=== PATIENT | female | born 1955 | race African-American/Black ===

== ENCOUNTER 2017-05-21 10:24 | Emergency (ER) | payer MEDICAID, OTHER ==
[~2017-05-21] VITALS: Ht 175.3 cm; Wt 89.8 kg
[2017-05-21 11:03] VITALS: BP 144/89
[2017-05-21 11:04] VITALS: BP 144/89
--- NOTE | 2017-05-21 12:42 | Emergency Room Report ---
History of Present Illness General Chief Complaint: Flu Like Symptoms Source: Patient Present Illness HPI 61-year-old female presents ED for evaluation. Complaining of runny nose, cough , congestion times one week. States she lost her voice. Denies any throat pain. Denies any fevers chills. Denies sick contacts or recent travel. States she received her Pneumovax and influenza shot this year. No other aggravating relieving factors. Denies any other associated symptoms Allergies: Coded Allergies: SULFA (SULFONAMIDE ANTIBIOTICS) (Unverified Allergy, Unknown, 10/25/13) Patient History Past Medical History: HTN Past Surgical History: none Pertinent Family History: none Social History: Denies: smoking, alcohol use, drug use Now: No Immunizations: UTD Reviewed Nursing Documentation: PMH: Agreed; PSxH: Agreed Nursing Documentation-PMH Hx Hypertension: Yes Review of Systems All Other Systems: negative except mentioned in HPI Physical Exam Vital Signs Date Time Temp Pulse Resp B/P (MAP) Pulse Ox O2 Delivery O2 Flow Rate FiO2 05/21/17 10:34 98.0 75 20 145/98 98 Room Air 98.1 Sp02 EP Interpretation: reviewed, normal General Appearance: no apparent distress, alert, GCS 15, non-toxic Head: normocephalic, atraumatic Eyes: bilateral eye normal inspection, bilateral eye PERRL ENT: hearing grossly normal, normal pharynx, no angioedema, normal voice Neck: full range of motion, supple/symm/no masses Respiratory: chest non-tender, lungs clear, normal breath sounds, speaking full sentences Cardiovascular #1: regular rate, rhythm, no edema Cardiovascular #2: 2+ carotid (R), 2+ carotid (L), 2+ radial (R), 2+ radial (L) , 2+ dorsalis pedis (R), 2+ dorsalis pedis (L) Gastrointestinal: normal bowel sounds, non tender, soft, non-distended, no guarding, no rebound Rectal: deferred Genitourinary: normal inspection, no CVA tenderness Musculoskeletal: back normal, gait/station normal, normal range of motion, non- tender Neurologic: alert, oriented x3, responsive, motor strength/tone normal, sensory intact, speech normal Psychiatric: judgement/insight normal, memory normal, mood/affect normal, no suicidal/homicidal ideation Reflexes: 3+ bicep (R), 3+ bicep (L), 3+ tricep (R), 3+ tricep (L), 3+ knee (R) , 3+ knee (L) Skin: normal color, no rash, warm/dry, well hydrated Lymphatic: no adenopathy Medical Decision Making Diagnostic Impression: Primary Impression: Upper respiratory infection Qualified Codes: J06.9 - Acute upper respiratory infection, unspecified ER Course Hospital Course 61-year-old female presents ED with runny nose, cough, congestion, lost voice Differential diagnoses include: URI, pharyngitis, otitis media, asthma Clinical course Patient placed on stretcher. After initial history, physical exam reveals an elderly female in no acute distress. Bilateral TM unremarkable. No pharyngeal erythema. No tonsillar exudates. No lymphadenopathy. lungs clear. abdomen soft. Clinical findings consistent with URI. Reassurance given. treatment is supportive therapy Diagnosis - URI Stable and discharged home. Instructed to followup with PMD. Return to ED if symptoms recur or worsen Last Vital Signs Date Time Temp Pulse Resp B/P (MAP) Pulse Ox O2 Delivery O2 Flow Rate FiO2 05/21/17 11:04 98.1 89 19 144/89 98 Room Air 98.1 Status: improved Disposition: HOME, SELF-CARE Condition: Stable Referrals: [facility]ERR[facility] (PCP) Patient Instructions: Upper Respiratory Infection, Adult, [id number] Jordin Gregg MD May 21, 2017 12:42
== END 2017-05-21 11:43 | disposition home or self-care (01) ==
LOC: EMR 11:00
DX: J06.9 Acute upper respiratory infection, unspecified (principal); I10 Essential (primary) hypertension; Z88.2 Allergy status to sulfonamides
CPT/HCPCS: 99282

== ENCOUNTER 2018-10-26 14:29 | Emergency (ER) | payer OTHER ==
[~2018-10-26] VITALS: Ht 175.3 cm; Wt 90.7 kg
--- NOTE | 2018-10-26 14:43 | NUR ---
ED Nurse Note: Also complains of pain and swelling x 6 days after [place]
--- NOTE | 2018-10-26 14:43 | NUR ---
ED Nurse Note: Pt came in from home due to dizziness x 1 week. Also c/o nausea/vomiting/diarrhea x today. Vomited x 3 today. Emesis was bile and undigested food. Last bowel movement was today. No complaint of pain. AOx4, VSS at this time.
--- NOTE | 2018-10-26 14:51 | Emergency Room Report ---
History of Present Illness General Chief Complaint: Dizziness Source: Patient Present Illness HPI Disclaimer: Please note that this report is being documented using DRAGON technology. This can lead to erroneous entry secondary to incorrect interpretation by the dictating instrument. HPI: 63-year-old female with a history of hypertension, restless leg syndrome presents for evaluation of nausea, vomiting, diarrhea, lightheadedness and left leg swelling. Patient states she has had approximately 1 week of profusely watery diarrhea occurring approximately 3 times daily. She denies any abdominal pain or inability to eat or drink during this period. Today, she had 3 episodes of vomiting and feels nauseated and lightheaded. She continues to deny abdominal pain. Denies fevers, chills, chest pain, shortness of breath. She was spreading ashes on a boat this afternoon and noticed some swelling of the left knee and calf. She normally has swelling of both legs while standing for prolonged periods of time but she found this abnormal as it was unilateral and only on the left side. She denies any history of blood clots, recent long distance travel, exogenous hormone use, recent surgery or immobilization or history of cancer. No other complaints at this time. There is no syncope and denies vertiginous symptoms describing it more as a lightheadedness. PMH: Hypertension, restless leg syndrome PSH: Denies Allergies: Sulfa medications Social Hx: Denies drug or alcohol abuse Allergies: Coded Allergies: SULFA (SULFONAMIDE ANTIBIOTICS) (Unverified Allergy, Unknown, 10/25/13) Nursing Documentation-PMH Past Medical History: No History, Except For Hx Cardiac Problems: No Hx Hypertension: Yes Hx Pacemaker: No Hx Asthma: No Hx COPD: No Hx Diabetes: No Hx Cancer: No Hx Gastrointestinal Problems: Yes Hx Dialysis: No History Of Psychiatric Problem: No Hx Neurological Problems: No Hx Cerebrovascular Accident: No Hx Seizures: No Review of Systems All Other Systems: negative except mentioned in HPI Physical Exam Vital Signs Date Time Temp Pulse Resp B/P (MAP) Pulse Ox O2 Delivery O2 Flow Rate FiO2 10/26/18 14:32 98.4 96 16 150/83 (105) 100 Room Air General: Awake and alert, no acute distress HEENT: NC/AT. EOMI. Neck: Supple, trachea midline Chest Wall: No tenderness, no deformity Cardiovascular: RRR. S1 and S2 normal. No murmur appreciated Resp: Normal work of breathing. No cough, wheezing or crackles appreciated Abdomen: Abdomen is soft, nondistended. Nontender Skin: Intact. No abrasions, laceration or rash over the exposed skin MSK: Normal tone and bulk. Moving all extremities. No obvious deformity. Neuro: Awake and alert. Mentating appropriately. Back/Spine: No midline tenderness in the cervical, thoracic or lumbosacral spine. Medical Decision Making Diagnostic Impression: Primary Impression: Diarrhea with dehydration Additional Impressions: Hypokalemia Episodic lightheadedness Muscle cramps ER Course 63-year-old female presents for evaluation of 1 week diarrhea with new onset vomiting, lightheadedness and leg swelling. Differential includes but is not limited to dehydration, gastroenteritis, gastritis, pancreatitis, cholecystitis , ACS, DVT, dependent edema. Will obtain labs, give antiemetics, start IV fluids and sent for lower extremity ultrasound. Laboratory Tests Test 10/26/18 14:55 10/26/18 17:45 White Blood Count 7.5 K/UL (4.8-10.8) Red Blood Count 4.96 M/UL (4.20-5.40) Hemoglobin 13.5 G/DL (12.0-16.0) Hematocrit 38.8 % (37.0-47.0) Mean Corpuscular Volume 78 FL (80-99) L Mean Corpuscular Hemoglobin 27.2 PG (27.0-31.0) Mean Corpuscular Hemoglobin Concent 34.8 G/DL (32.0-36.0) Red Cell Distribution Width 11.0 % (11.6-14.8) L Platelet Count 257 K/UL (150-450) Mean Platelet Volume 7.6 FL (6.5-10.1) Neutrophils (%) (Auto) % (45.0-75.0) Lymphocytes (%) (Auto) % (20.0-45.0) Monocytes (%) (Auto) % (1.0-10.0) Eosinophils (%) (Auto) % (0.0-3.0) Basophils (%) (Auto) % (0.0-2.0) Differential Total Cells Counted 100 Neutrophils % (Manual) 87 % (45-75) H Lymphocytes % (Manual) 8 % (20-45) L Monocytes % (Manual) 3 % (1-10) Eosinophils % (Manual) 0 % (0-3) Basophils % (Manual) 0 % (0-2) Band Neutrophils 2 % (0-8) Platelet Estimate Adequate Platelet Morphology Normal Polychromasia 1+ Microcytosis 1+ Urine Color Yellow Urine Appearance Clear Urine pH 5 (4.5-8.0) Urine Specific [place] 1.020 (1.005-1.035) Urine Protein 2+ (NEGATIVE) H Urine Glucose (UA) Negative (NEGATIVE) Urine Ketones 1+ (NEGATIVE) H Urine Blood Negative (NEGATIVE) Urine Nitrite Negative (NEGATIVE) Urine Bilirubin 1+ (NEGATIVE) H Urine Ictotest Negative (NEGATIVE) Urine Urobilinogen 1 MG/DL (0.0-1.0) H Urine Leukocyte Esterase 1+ (NEGATIVE) H Urine RBC 0-2 /HPF (0 - 2) Urine WBC 2-4 /HPF (0 - 2) Urine Squamous Epithelial Cells Few /LPF (NONE/OCC) Urine Bacteria Few /HPF (NONE) Urine Fine Granular Casts 2-4 /LPF (NONE) H Sodium Level 144 MMOL/L (136-145) Potassium Level 2.8 MMOL/L (3.5-5.1) L Chloride Level 106 MMOL/L (98-107) Carbon Dioxide Level 21 MMOL/L (21-32) Anion Gap 17 mmol/L (5-15) H Blood Urea Nitrogen 25 mg/dL (7-18) H Creatinine 1.2 MG/DL (0.55-1.30) Estimate Glomerular Filtration Rate 54.9 mL/min (>60) Glucose Level 142 MG/DL (74-106) H Calcium Level 9.3 MG/DL (8.5-10.1) Total Bilirubin 0.6 MG/DL (0.2-1.0) Aspartate Amino Transferase (AST) 19 U/L (15-37) Alanine Aminotransferase (ALT) 31 U/L (12-78) Alkaline Phosphatase 75 U/L (46-116) Troponin I 0.052 ng/mL (0.000-0.056) 0.037 ng/mL (0.000-0.056) Total Protein 7.9 G/DL (6.4-8.2) Albumin 4.4 G/DL (3.4-5.0) Globulin 3.5 g/dL Albumin/Globulin Ratio 1.3 (1.0-2.7) Lipase 166 U/L (73-393) EKG Diagnostic Results EKG Time: 14:59 Rate: normal Rhythm: NSR ST Segments: no acute changes Other Impression Sinus rhythm, left axis, flattened T waves. No acute ST segment changes Rhythm Strip Diag. Results Rhythm Strip Time: 14:59 EP Interpretation: yes Rate: 90s Rhythm: NSR Reevaluation Time: 18:05 Last Vital Signs Date Time Temp Pulse Resp B/P (MAP) Pulse Ox O2 Delivery O2 Flow Rate FiO2 10/26/18 14:32 98.4 96 16 150/83 (105) 100 Room Air Status: improved Reevaluation Impression Patient was found to have low potassium at 2.8 and received 2 runs of IV potassium as well as oral supplementation. Labs otherwise consistent with dehydration for which she has received IV fluids with significant improvement. Lower extremity ultrasound found no evidence of deep vein thrombosis in the left leg. She is likely experiencing pain and cramping in that leg from her low potassium likely from GI losses over the past week. Patient will be discharged home with potassium supplementation for 5 days and instructed to follow-up with her PMD for repeat blood work. We also stressed the importance of maintaining proper hydration eating regular meals to replace losses from her diarrheal illness. Patient is feeling significantly improved and would like to go home. Believe she is safe for outpatient follow-up with her PMD. We discussed reasons to return to the emergency department. She understands and agrees with this treatment plan. Disposition: HOME, SELF-CARE Condition: Improved Scripts Prochlorperazine Maleate* (COMPAZINE*) 5 Mg Tablet 5 MG ORAL Q6H, #20 TAB 0 Refills Prov: Leo Escobar MD 10/26/18 Potassium Chloride (K-Tab ER) 20 Meq Tablet.er 20 MEQ PO DAILY for 5 Days, #5 TAB Prov: Leo Escobar MD 10/26/18 Leo Escobar MD Oct 26, 2018 14:52
[2018-10-26 15:06] VITALS: BP 144/84
[2018-10-26 15:06] LABS: APPEARANCE,URINE CLEAR; BILIRUBIN, URINE 1+ (NEGATIVE); GLUCOSE, URINE (UA) NEGATIVE (NEGATIVE); KETONES,URINE 1+ (NEGATIVE); LEUKOCYTE ESTERASE ,URINE 1+ (NEGATIVE); NITRITE,URINE NEGATIVE (NEGATIVE); PH,URINE 5 (4.5-8.0); PROTEIN,URINE 2+ (NEGATIVE); UROBILINOGEN,URINE 1 MG/DL (0.0-1.0)
[2018-10-26 15:18] LABS: ANION GAP 17 mmol/L (5-15); BLOOD UREA NITROGEN 25 mg/dL (7-18); CALCIUM 9.3 MG/DL (8.5-10.1); CARBON DIOXIDE 21 MMOL/L (21-32); CHLORIDE 106 MMOL/L (98-107); CREATININE 1.2 MG/DL (0.55-1.30); POTASSIUM 2.8 MMOL/L (3.5-5.1); SODIUM 144 MMOL/L (136-145)
[2018-10-26 15:22] LABS: ALANINE AMINOTRANSFERASE 31 U/L (12-78); ALBUMIN 4.4 G/DL (3.4-5.0); ALBUMIN/GLOBULIN RATIO 1.3 (1.0-2.7); ALKALINE PHOSPHATASE 75 U/L (46-116); ASPARTATE AMINO TRANSFERASE 19 U/L (15-37); BILIRUBIN,TOTAL 0.6 MG/DL (0.2-1.0)
[2018-10-26 15:27] LABS: COLOR,URINE YELLOW
[2018-10-26 15:34] LABS: HEMATOCRIT 38.8 % (37.0-47.0); HEMOGLOBIN 13.5 G/DL (12.0-16.0); MEAN CORPUSCULAR VOLUME 78 FL (80-99); PLATELET COUNT 257 K/UL (150-450); RED BLOOD COUNT 4.96 M/UL (4.20-5.40); WHITE BLOOD COUNT 7.5 K/UL (4.8-10.8)
--- NOTE | 2018-10-26 16:25 | NUR ---
ED Nurse Note: US tech at bedside for imaging.
[2018-10-26 17:48] VITALS: BP 157/81
[2018-10-26] MEDS ORDERED: K-TAB ER20 MEQ PO (18:04)
[2018-10-26] MEDS ORDERED: PROCHLORPERAZINE5 MG ORAL (18:29)
[2018-10-26 18:34] VITALS: BP 150/67
--- NOTE | 2018-10-26 18:34 | NUR ---
ER DISCHARGE NOTE: Patient is cleared to be discharged per ERMD, pt is aox4, on room air, with stable vital signs. pt was given dc and prescription instructions, pt was able to verbalize understanding, pt id band and iv site removed without complications. pt is able to ambulate with steady gait. pt took all belongings.
--- NOTE | 2018-10-27 15:17 | Cardiology Report ---
APPROVED REPORT EKG Measurement Heart [id number] Normal sinus rhythm Possible Left atrial enlargement Left ventricular hypertrophy Cannot rule out Septal infarct, age undetermined Abnormal ECG
== END 2018-10-26 18:34 | disposition home or self-care (01) ==
LOC: EMR 15:27
DX: E86.0 Dehydration (principal); R19.7 Diarrhea, unspecified; E87.6 Hypokalemia; R42 Dizziness and giddiness; R25.2 Cramp and spasm; R60.0 Localized edema
CPT/HCPCS: 36415; 80053; 81003; 83690; 84484; 85007; 85025; 93005; 93971; 96361; 96365; 96367; 96375; 99284; J2405; J3480; J8499